=== PATIENT | male | born 1965 | race Caucasian/White ===

== ENCOUNTER 2016-11-30 13:02 | Emergency (ER) | payer BC ==
[2016-11-30] MEDS ORDERED: Sodium Chloride 0.9% 10 ML Syringe FLUSH PRN (13:22)
[2016-11-30] MEDS ORDERED: Morphine 2 MG/ML Syringe IVPUSH ONE (13:22)
[2016-11-30] MEDS ORDERED: Sodium Chloride 0.9% 1,000 ML IV ONE ×2 (13:22→15:19)
[2016-11-30] MEDS ORDERED: Ondansetron 4 MG Tab.DIS PO ONE (13:22)
[2016-11-30] MEDS ORDERED: Sodium Chloride 0.9% 2.5 ML Syringe FLUSH PRN (13:22)
--- NOTE | 2016-11-30 13:25 | EDM.PDOC ---
ED HPI GENERAL MEDICAL PROBLEM - General Chief Complaint: Gastrointestinal Problem Stated Complaint: VOMITING Time Seen by Provider: 11/30/16 13:07 - History of Present Illness INITIAL COMMENTS - FREE TEXT/NARRATIVE: HISTORY AND PHYSICAL: History of present illness: The patient is a 51-year-old male who presents with complaints of intractable vomiting that started at 6 AM this morning. According to the patient he ate [employer] last evening and after finishing it he immediately had one episode of vomiting but then went to sleep. He woke this morning with diffuse nausea and stomach cramping and had about 30 episodes of vomiting since that time and has pain in his abdomen and cramping since the vomiting. He has had one loose stool but feels like his abdomen is and is concerned he is going to have more diarrhea. He feels feverish but he does have a documented fever yesterday had a normal day with no systemic complaints of fever chills cough chest pain shortness of breath or abdominal issues. He has no history of food intolerance. He has not taken any [id number] medications for these symptoms. Patient states he has a history of diverticulitis but is only had one episode. Review of systems: As per history of present illness and below otherwise all systems reviewed and negative. Past medical history: As per history of present illness and as reviewed below otherwise noncontributory. Surgical history: As per history of present illness and as reviewed below otherwise noncontributory. Social history: No reported history of drug or alcohol abuse. Family history: As per history of present illness and as reviewed below otherwise noncontributory. Physical exam: Gen.: Well-developed well-nourished man who is somewhat anxious in the room but is able to be redirected. Vital signs of the note by me. HEENT: Atraumatic, normocephalic, , negative for conjunctival pallor or scleral icterus, mucous membranes tacky throat clear, neck supple, nontender, trachea midline. Lungs: Clear to auscultation, breath sounds equal bilaterally, chest nontender. Heart: S1S2, regular, negative for clicks, rubs, or JVD. Abdomen: Soft, nondistended bowel sounds are normoactive, the abdomen is scaphoid and not tympanitic, there is diffuse tenderness without localization no rebound or guarding. Negative for masses or hepatosplenomegaly. Pelvis: Stable nontender. Genitourinary: Deferred. Rectal: Deferred. Extremities: Atraumatic, negative for cords or calf pain. Neurovascular unremarkable. Neuro: Awake, alert, oriented. Cranial nerves II through XII unremarkable. Cerebellum unremarkable. Motor and sensory unremarkable throughout. Exam nonfocal. Diagnostics: CBC CMP amylase lipase UA abdominal x-rays Therapeutics: IV fluids Zofran and morphine Bentyl Patient states that he is feeling poorly again although is not actively vomiting but he still feels "sick". I will give him Reglan and Benadryl and continue with the IV fluids and reevaluate Patient continues to improve but is still somewhat restless and states that he still having some cramping but he has not had nausea or vomiting and he is currently starting to take some licks of a popsicle. I discussed with family and the patient all testing results and care plan for home that would include Zofran and Bentyl and I will also give a few Phenergan suppositories Zofran is not working. I stressed need for sips of fluids and small bites and reasons to return to the ED. Impression: Gastroenteritis/profound vomiting improving Definitive disposition and diagnosis as appropriate pending reevaluation and review of above. - Related Data Allergies Allergy/AdvReac Type Severity Reaction Status Date / Time No Known Allergies Allergy Verified 11/30/16 13:17 Home Meds: Home Meds . [No Known Home Meds] 11/30/16 [History] Past Medical History - Past Health History Medical/Surgical History: Denies Medical/Surgical History Social & Family History - Tobacco Use Smoking Status *Q: Current Every Day Smoker Years of Tobacco use: 20 Packs/Tins Daily: 0.4 - Caffeine Use Caffeine Use: Reports: None - Recreational Drug Use Recreational Drug Use: No ED ROS GENERAL - Review of Systems Review Of Systems: ROS reveals no pertinent complaints other than HPI. ED EXAM, GENERAL - Physical Exam Exam: See Below (See dictation) Course - Vital Signs Last Recorded V/S: Last Vital Signs Temp 36.9 C 11/30/16 13:14 Pulse 55 L 11/30/16 13:14 Resp 20 11/30/16 13:14 BP 165/92 H 11/30/16 13:14 Pulse Ox 100 11/30/16 13:14 - Orders/Labs/Meds Orders: Active Orders 24 hr Category Date Time Status UA W/MICROSCOPIC [URIN] Stat Lab 11/30/16 13:22 Uncollected Sodium Chloride 0.9% [Normal Saline] 1,000 ml Med 11/30/16 15:19 Active IV .Bolus Sodium Chloride 0.9% [Saline Flush] Med 11/30/16 13:22 Active 10 ml FLUSH ASDIRECTED PRN Sodium Chloride 0.9% [Saline Flush] Med 11/30/16 13:22 Active 2.5 ml FLUSH ASDIRECTED PRN Saline Lock Insert [OM.PC] Stat Oth 11/30/16 13:21 Ordered Medication Orders Sodium Chloride (Normal Saline) 1,000 mls @ 999 mls/hr IV .Bolus ONE Stop: 11/30/16 16:19 Last Admin: 11/30/16 14:57 Dose: 999 mls/hr Sodium Chloride (Saline Flush) 10 ml FLUSH ASDIRECTED PRN PRN Reason: Keep Vein Open Sodium Chloride (Saline Flush) 2.5 ml FLUSH ASDIRECTED PRN PRN Reason: Keep Vein Open Labs: Laboratory Tests 11/30/16 11/30/16 Range/Units 13:25 13:25 WBC 14.99 H (4.0-11.0) K/uL RBC 5.49 (4.50-5.90) M/uL Hgb 17.8 H (13.0-17.0) g/dL Hct 48.8 (38.0-50.0) % MCV 88.9 (80.0-98.0) fL MCH 32.4 H (27.0-32.0) pg MCHC 36.5 (31.0-37.0) g/dL RDW Std Deviation 41.2 (28.0-62.0) fl RDW Coeff of Clif 13 (11.0-15.0) % Plt Count 251 (150-400) K/uL MPV 10.00 (7.40-12.00) fL Neut % (Auto) 90.3 H (48.0-80.0) % Lymph % (Auto) 7.3 L (16.0-40.0) % [place] % (Auto) 2.3 (0.0-15.0) % Eos % (Auto) 0.0 (0.0-7.0) % Baso % (Auto) 0.1 (0.0-1.5) % Neut # (Auto) 13.5 H (1.4-5.7) K/uL Lymph # (Auto) 1.1 (0.6-2.4) K/uL [place] # (Auto) 0.3 (0.0-0.8) K/uL Eos # (Auto) 0.0 (0.0-0.7) K/uL Baso # (Auto) 0.0 (0.0-0.1) K/uL Nucleated RBC % 0.0 /100WBC Nucleated RBCs # 0 K/uL Sodium 142 (136-146) mmol/L Potassium 4.2 (3.5-5.1) mmol/L Chloride 108 (98-110) mmol/L Carbon Dioxide 21 (21-31) mmol/L BUN 14 (6.0-23.0) mg/dL Creatinine 1.1 (0.6-1.5) mg/dL Est Cr Clr Drug Dosing 93.41 mL/min Estimated GFR (MDRD) > 60.0 ml/min Glucose 151 H (60-110) mg/dL Calcium 10.2 (8.8-10.8) mg/dL Total Bilirubin 1.5 (0.1-1.5) mg/dL AST 19 (5-40) IU/L ALT 25 (8-54) IU/L Alkaline Phosphatase 101 (40-150) Total Protein 7.8 (6.0-8.0) g/dL Albumin 4.4 (3.5-5.0) g/dL Globulin 3.4 (2.0-3.5) g/dL Albumin/Globulin Ratio 1.3 (1.3-2.8) Amylase 71 (10-90) U/L Lipase 15 (7-80) U/L Meds: Medications Generic Name Dose Route Start Last Admin Trade Name Freq PRN Reason Stop Dose Admin Sodium Chloride 1,000 mls @ 999 mls/hr 11/30/16 15:19 11/30/16 14:57 Normal Saline IV 11/30/16 16:19 999 mls/hr .Bolus ONE Administration Sodium Chloride 10 ml 11/30/16 13:22 Saline Flush FLUSH ASDIRECTED PRN Keep Vein Open Sodium Chloride 2.5 ml 11/30/16 13:22 Saline Flush FLUSH ASDIRECTED PRN Keep Vein Open Discontinued Medications Generic Name Dose Route Start Last Admin Trade Name [place] PRN Reason Stop Dose Admin Diphenhydramine HCl 50 mg 11/30/16 14:27 11/30/16 14:53 Benadryl IVPUSH 11/30/16 14:28 50 mg ONETIME ONE Administration Sodium Chloride 1,000 mls @ 999 mls/hr 11/30/16 13:22 11/30/16 14:57 Normal Saline IV 11/30/16 14:22 999 mls/hr STAT ONE Administration Metoclopramide HCl 10 mg 11/30/16 14:27 11/30/16 14:52 Reglan IV 11/30/16 14:28 10 mg ONETIME ONE Administration Morphine Sulfate 4 mg 11/30/16 13:22 11/30/16 13:31 Morphine IVPUSH 11/30/16 13:23 4 mg ONETIME ONE Administration Ondansetron HCl 4 mg 11/30/16 13:22 11/30/16 13:34 Zofran Odt PO 11/30/16 13:23 4 mg ONETIME ONE Administration Departure - Departure Time of Disposition: 15:50 Disposition: Home, Self-Care 01 Condition: Fair Clinical Impression: Vomiting - Discharge Information Referrals: PCP,None [Primary Care Provider] - Forms: ED Department Discharge Additional Instructions: The following information is given to patients seen in the emergency department who are being discharged to home. This information is to outline your options for follow-up care. We provide all patients seen in our emergency department with a follow-up referral. The need for follow-up, as well as the timing and circumstances, are variable depending upon the specifics of your emergency department visit. If you don't have a primary care physician on staff, we will provide you with a referral. We always advise you to contact your personal physician following an emergency department visit to inform them of the circumstance of the visit and for follow-up with them and/or the need for any referrals to a consulting specialist. The emergency department will also refer you to a specialist when appropriate. This referral assures that you have the opportunity for followup care with a specialist. All of these measure are taken in an effort to provide you with optimal care, which includes your followup. Under all circumstances we always encourage you to contact your private physician who remains a resource for coordinating your care. When calling for followup care, please make the office aware that this follow-up is from your recent emergency room visit. If for any reason you are refused follow-up, please contact the [facility] emergency department at and ask to speak to the emergency department charge nurse. Primary care- Internal Medicine and Family [address] [address] Push sips of clear fluids as we discussed and bland bites for the next 24 hours. His medications as needed and prescribed. Expect to have some cramping vomiting and diarrhea for the next 24-36 hours return to ER as needed and as discussed. - My Orders Last 24 Hours: My Active Orders 11/30/16 13:21 Saline Lock Insert [OM.PC] Stat 11/30/16 13:22 UA W/MICROSCOPIC [URIN] Stat Sodium Chloride 0.9% [Saline Flush] 10 ml FLUSH ASDIRECTED PRN Sodium Chloride 0.9% [Saline Flush] 2.5 ml FLUSH ASDIRECTED PRN 11/30/16 15:19 Sodium Chloride 0.9% [Normal Saline] 1,000 ml IV .Bolus - Assessment/Plan Last 24 Hours: My Active Orders 11/30/16 13:21 Saline Lock Insert [OM.PC] Stat 11/30/16 13:22 UA W/MICROSCOPIC [URIN] Stat Sodium Chloride 0.9% [Saline Flush] 10 ml FLUSH ASDIRECTED PRN Sodium Chloride 0.9% [Saline Flush] 2.5 ml FLUSH ASDIRECTED PRN 11/30/16 15:19 Sodium Chloride 0.9% [Normal Saline] 1,000 ml IV .Bolus
[2016-11-30 13:57] LABS: CHLORIDE,CL 108 mmol/L (98-110); SODIUM,NA 142 mmol/L (136-146)
--- NOTE | 2016-11-30 14:14 | CR ---
EXAMINATION: Abdomen HISTORY: Pain COMPARISON: None TECHNIQUE: AP and upright views FINDINGS: There is a nonobstructive bowel gas pattern. No free air under the diaphragm. No abnormal c alcifications project over the kidneys. Visualized osseous structures appear unremarkable. IMPRESSION: Unremarkable abdominal films.
[2016-11-30] MEDS ORDERED: Metoclopramide 10 MG/2 ML SDV IV ONE (14:27)
[2016-11-30] MEDS ORDERED: diphenhydrAMINE 50 MG/ML SDV IVPUSH ONE (14:27)
[2016-11-30] MEDS ORDERED: Iopamidol 755 MG/ML 500 ML Multipack Bottle IVPUSH STA (16:26)
--- NOTE | 2016-11-30 16:56 | CT ---
CT of the abdomen and pelvis with contrast. HISTORY: Pain TECHNIQUE: Axial CT images were obtained of the abdomen and pelvis following administration of 100 mL of Isovue-370 in the right arm without complication. Coronal and sagittal reconstructions obtained. FINDINGS: There is a tiny 3 mm nodule within the subpleural right middle lobe. There is a tiny cyst within the left hepatic lobe. The spleen, adrenal glands, and pancreas appear no rmal. The gallbladder is normal. There is no bulky retroperitoneal lymphadenopathy or abdominal ascit es. The kidneys enhance and function symmetrically without evidence of obstructive uropathy. The large and small bowel are normal in caliber without evidence of obstruction. Appendix is normal. There are a few scattered diverticula noted. The urinary bladder is normal. The prostate is moderatel y prominent. No bulky pelvic lymphadenopathy or free pelvic fluid. There is a tiny fat-containing umb ilical hernia. No suspicious osseous abnormalities identified. There is an old healed pedicle fracture on the right at L4. 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 IMPRESSION: 1. No acute findings noted within the abdomen or pelvis.
[2016-11-30 17:24] VITALS: BP 139/74
== END 2016-11-30 17:19 | disposition home or self-care (01) ==
LOC: MW.ED 13:02
DX: K52.9 Noninfective gastroenteritis and colitis, unspecified (principal); F17.210 Nicotine dependence, cigarettes, uncomplicated
CPT/HCPCS: 36415; 74020; 74177; 80053; 82150; 83690; 85025; 96361; 96374; 96375; 99284; A9270; J1200; J2270; J2765; J7040; Q9967; 99283

== ENCOUNTER 2019-01-12 09:19 | Observation (INO) | payer BC, OTHER ==
[2019-01-12] MEDS ORDERED: Sodium Chloride 0.9% 2.5 ML Syringe FLUSH PRN (09:42)
[2019-01-12] MEDS ORDERED: Sodium Chloride 0.9% 1,000 ML IV ONE ×3 (09:42→13:35)
[2019-01-12] MEDS ORDERED: Sodium Chloride 0.9% 10 ML Syringe FLUSH PRN (09:42)
--- NOTE | 2019-01-12 09:45 | EDM.PDOC ---
ED HPI GENERAL MEDICAL PROBLEM - General Chief Complaint: General Stated Complaint: FLU SYMPTOMS Time Seen by Provider: 01/12/19 09:42 Source of Information: Reports: Patient History Limitations: Reports: No Limitations - History of Present Illness INITIAL COMMENTS - FREE TEXT/NARRATIVE: HISTORY AND PHYSICAL: History of present illness: Patient is a 53-year-old male presents to the ED with complaint of flu-like symptoms. He states for the past 5 days he has had vomiting, abdominal cramping , and cough. He states he has a history of diverticulitis and is having some left lower abdominal pain. He states he's had chills and subjective fevers, denies chest pain, dysuria, back pain, diarrhea, blood stools. Denies significant past medical or surgical history. He states his daughter recently was sick with diarrhea. Review of systems: As per history of present illness and below otherwise all systems reviewed and negative. Past medical history: As per history of present illness and as reviewed below otherwise noncontributory. Surgical history: As per history of present illness and as reviewed below otherwise noncontributory. Social history: No reported history of drug or alcohol abuse. Family history: As per history of present illness and as reviewed below otherwise noncontributory. Physical exam: General: Patient sitting comfortably in no acute distress and nontoxic appearing HEENT: Atraumatic, normocephalic, pupils reactive, negative for conjunctival pallor or scleral icterus, mucous membranes dry, throat clear, neck supple, nontender, trachea midline. No meningeal signs. Lungs: Clear to auscultation, breath sounds equal bilaterally, chest nontender. Heart: S1S2, regular, negative for clicks, rubs, or overt murmur. Abdomen: Soft, nondistended, nontender. Negative for masses or hepatosplenomegaly. Negative for costovertebral tenderness. No rigidity, rebound , guarding. Pelvis: Stable nontender. Genitourinary: Deferred. Rectal: Deferred. Extremities: Atraumatic, negative for cords or calf pain. Neurovascular unremarkable. Neuro: Awake, alert, oriented. Cranial nerves II through XII unremarkable. Cerebellum unremarkable. Motor and sensory unremarkable throughout. Exam nonfocal. Notes: Diagnostics: CBC, CMP, UA, CXR, CT abdomen/pelvis, lactate, blood culture x 2 Therapeutics: 2L NS IV 4mg Zofran IV Prescriptions: Impression: Vomiting, dehydration, diverticulitis Plan: Discussed with Dr. Ibarra, patient will be admitted to observation/telemetry for dehydration and diverticulitis. Definitive disposition and diagnosis as appropriate pending reevaluation and review of above. - Related Data Allergies Allergy/AdvReac Type Severity Reaction Status Date / Time No Known Allergies Allergy Verified 01/12/19 09:43 Home Meds: Home Meds . [No Known Home Meds] 11/30/16 [History] Past Medical History - Past Health History Medical/Surgical History: Denies Medical/Surgical History Social & Family History - Caffeine Use Caffeine Use: Reports: None ED ROS GENERAL - Review of Systems Review Of Systems: Comprehensive ROS is negative, except as noted in HPI. ED EXAM, GENERAL - Physical Exam Exam: See Below (see dictation) Course - Vital Signs Last Recorded V/S: Last Vital Signs Temp 96.5 F 01/12/19 09:34 Pulse 114 H 01/12/19 09:34 Resp 18 01/12/19 09:34 BP 135/93 H 01/12/19 09:34 Pulse Ox 98 01/12/19 09:34 - Orders/Labs/Meds Orders: Active Orders 24 hr Category Date Time Status CULTURE BLOOD [BC] Stat Lab 01/12/19 12:10 Ordered CULTURE BLOOD [BC] Stat Lab 01/12/19 12:10 Ordered LACTATE WITH REFLEX [BG] Stat Lab 01/12/19 12:10 Ordered UA RFX JUSTICE AND CULT IF INDIC [URIN] Stat Lab 01/12/19 11:21 Ordered Piperacillin/Tazobactam [Piperacil-Tazobact] 3.375 gm Med 01/12/19 12:17 Ordered Sodium Chloride 0.9% [Normal Saline] 50 ml IV ONETIME Sodium Chloride 0.9% [Normal Saline] 1,000 ml Med 01/12/19 11:46 Active IV STAT Sodium Chloride 0.9% [Saline Flush] Med 01/12/19 09:42 Active 10 ml FLUSH ASDIRECTED PRN Sodium Chloride 0.9% [Saline Flush] Med 01/12/19 09:42 Active 2.5 ml FLUSH ASDIRECTED PRN Blood Culture x2 Reflex Set [OM.PC] Stat Oth 01/12/19 12:10 Ordered Saline Lock Insert [OM.PC] Stat Oth 01/12/19 09:42 Ordered Medication Orders Sodium Chloride (Normal Saline) 1,000 mls @ 999 mls/hr IV STAT ONE Stop: 01/12/19 12:46 Last Admin: 01/12/19 11:50 Dose: 999 mls/hr Sodium Chloride (Saline Flush) 10 ml FLUSH ASDIRECTED PRN PRN Reason: Keep Vein Open Last Admin: 01/12/19 10:08 Dose: 10 ml Sodium Chloride (Saline Flush) 2.5 ml FLUSH ASDIRECTED PRN PRN Reason: Keep Vein Open Last Admin: 01/12/19 10:08 Dose: 2.5 ml Labs: Laboratory Tests 01/12/19 01/12/19 Range/Units 10:10 10:10 WBC 12.29 H (4.0-11.0) K/uL RBC 5.93 H (4.50-5.90) M/uL Hgb 17.5 H (13.0-17.0) g/dL Hct 51.8 H (38.0-50.0) % MCV 87.4 (80.0-98.0) fL MCH 29.5 (27.0-32.0) pg MCHC 33.8 (31.0-37.0) g/dL RDW Std Deviation 41.4 (28.0-62.0) fl RDW Coeff of Clif 13 (11.0-15.0) % Plt Count 270 (150-400) K/uL MPV 10.30 (7.40-12.00) fL Neut % (Auto) 64.8 (48.0-80.0) % Lymph % (Auto) 23.5 (16.0-40.0) % [place] % (Auto) 11.5 (0.0-15.0) % Eos % (Auto) 0.1 (0.0-7.0) % Baso % (Auto) 0.1 (0.0-1.5) % Neut # (Auto) 8.0 H (1.4-5.7) K/uL Lymph # (Auto) 2.9 H (0.6-2.4) K/uL [place] # (Auto) 1.4 H (0.0-0.8) K/uL Eos # (Auto) 0.0 (0.0-0.7) K/uL Baso # (Auto) 0.0 (0.0-0.1) K/uL Nucleated RBC % 0.0 /100WBC Nucleated RBCs # 0 K/uL Sodium 130 L (136-148) mmol/L Potassium 3.8 (3.5-5.1) mmol/L Chloride 90 L (98-107) mmol/L Carbon Dioxide 23.4 (21.0-32.0) mmol/L BUN 67 H (7.0-18.0) mg/dL Creatinine 2.3 H (0.8-1.3) mg/dL Est Cr Clr Drug Dosing 43.68 mL/min Estimated GFR (MDRD) 30.0 ml/min Glucose 156 H (74-106) mg/dL Calcium 9.7 (8.5-10.1) mg/dL Total Bilirubin 4.2 H (0.2-1.0) mg/dL AST 58 H (15-37) IU/L ALT 50 (14-63) IU/L Alkaline Phosphatase 100 (46-116) U/L Total Protein 9.4 H (6.4-8.2) g/dL Albumin 4.8 (3.4-5.0) g/dL Globulin 4.6 H (2.6-4.0) g/dL Albumin/Globulin Ratio 1.0 (0.9-1.6) Meds: Medications Generic Name Dose Route Start Last Admin Trade Name Freq PRN Reason Stop Dose Admin Sodium Chloride 1,000 mls @ 999 mls/hr 01/12/19 11:46 01/12/19 11:50 Normal Saline IV 01/12/19 12:46 999 mls/hr STAT ONE Administration Sodium Chloride 10 ml 01/12/19 09:42 01/12/19 10:08 Saline Flush FLUSH 10 ml ASDIRECTED PRN Administration Keep Vein Open Sodium Chloride 2.5 ml 01/12/19 09:42 01/12/19 10:08 Saline Flush FLUSH 2.5 ml ASDIRECTED PRN Administration Keep Vein Open Discontinued Medications Generic Name Dose Route Start Last Admin Trade Name Freq PRN Reason Stop Dose Admin Sodium Chloride 1,000 mls @ 999 mls/hr 01/12/19 09:42 01/12/19 10:07 Normal Saline IV 01/12/19 10:42 999 mls/hr STAT ONE Administration Ondansetron HCl 4 mg 01/12/19 10:47 01/12/19 10:51 Zofran IVPUSH 01/12/19 10:48 4 mg ONETIME ONE Administration Departure - Departure Time of Disposition: 12:20 Disposition: Refer to Observation Condition: Good Clinical Impression: Dehydration, Diverticula of colon - Discharge Information Forms: ED Department Discharge - My Orders Last 24 Hours: My Active Orders 01/12/19 09:42 Sodium Chloride 0.9% [Saline Flush] 10 ml FLUSH ASDIRECTED PRN Sodium Chloride 0.9% [Saline Flush] 2.5 ml FLUSH ASDIRECTED PRN Saline Lock Insert [OM.PC] Stat 01/12/19 11:21 UA RFX JUSTICE AND CULT IF INDIC [URIN] Stat 01/12/19 11:46 Sodium Chloride 0.9% [Normal Saline] 1,000 ml IV STAT 01/12/19 12:10 CULTURE BLOOD [BC] Stat CULTURE BLOOD [BC] Stat LACTATE WITH REFLEX [BG] Stat Blood Culture x2 Reflex Set [OM.PC] Stat 01/12/19 12:17 Piperacillin/Tazobactam [Piperacil-Tazobact] 3.375 gm Sodium Chloride 0.9% [ Normal Saline] 50 ml IV ONETIME - Assessment/Plan Last 24 Hours: My Active Orders 01/12/19 09:42 Sodium Chloride 0.9% [Saline Flush] 10 ml FLUSH ASDIRECTED PRN Sodium Chloride 0.9% [Saline Flush] 2.5 ml FLUSH ASDIRECTED PRN Saline Lock Insert [OM.PC] Stat 01/12/19 11:21 UA RFX JUSTICE AND CULT IF INDIC [URIN] Stat 01/12/19 11:46 Sodium Chloride 0.9% [Normal Saline] 1,000 ml IV STAT 01/12/19 12:10 CULTURE BLOOD [BC] Stat CULTURE BLOOD [BC] Stat LACTATE WITH REFLEX [BG] Stat Blood Culture x2 Reflex Set [OM.PC] Stat 01/12/19 12:17 Piperacillin/Tazobactam [Piperacil-Tazobact] 3.375 gm Sodium Chloride 0.9% [ Normal Saline] 50 ml IV ONETIME
[2019-01-12] MEDS ORDERED: Ondansetron 4 MG/2 ML SDV IVPUSH ONE (10:47)
[2019-01-12 10:55] LABS: CARBON DIOXIDE,CO2 23.4 mmol/L (21.0-32.0); POTASSIUM,K 3.8 mmol/L (3.5-5.1)
--- NOTE | 2019-01-12 11:46 | CR ---
Chest: Two views of the chest were obtained. Comparison: Prior chest x-ray of 08/30/12. Heart size and mediastinum are normal. Lungs are clear. Lungs are hyperinflated. Bony structures are within normal limits. Impression: 1. Emphysematous change. 2. Nothing acute is otherwise seen. Diagnostic code #2 MTDD
--- NOTE | 2019-01-12 12:02 | CT ---
CT abdomen and pelvis Technique: Multiple axial sections were obtained from above the dome of the diaphragm inferiorly through the pubic symphysis. Intravenous and oral contrast not utilized. Comparison: Prior CT abdomen and pelvis exam of 11/30/16. Findings: Very slight inflammatory change is noted near the junction of the descending and sigmoid regions. Minimal diverticulitis is a possibility. No other inflammatory change is seen. Visualized lung bases show nothing acute. Liver shows no focal parenchymal abnormality. Spleen appears within normal limits. Gallbladder contains no calcified gallstones. Adrenal glands show no nodule. Kidneys show no abnormal calcifications or hydronephrosis. Pancreas shows no discrete abnormality. Aorta shows atherosclerotic calcification which continues into the iliac vessels with no aneurysm. No retroperitoneal adenopathy or mesenteric abnormalities are seen. No pelvic mass or adenopathy is seen. Appendix is seen and is normal in size. Bone window settings were reviewed which shows spondylolisthesis and severe disc space narrowing at L5-S1 which is due to spondylolytic defect on the left side and old pedicle fracture on the right side. These findings are stable from previous exam. Other less prominent degenerative change is scattered within the spine. Impression: 1. Possible minimal diverticulitis at the junction of descending and sigmoid colon. 2. Other findings as noted above which are stable and nonacute. Diagnostic code #3 MTDD
[2019-01-12] MEDS ORDERED: Piperacillin/Tazobactam 3.375 GM in Sodium Chloride 0.9% 50 ML IV ONE (12:17)
[2019-01-12] MEDS ORDERED: Sodium Chloride 0.9% 50 ML ONE (13:05)
[2019-01-12] MEDS ORDERED: Sodium Chloride 0.9% 1,000 ML IV SCH (13:45)
[2019-01-12] MEDS ORDERED: Morphine 2 MG/ML Syringe IVPUSH PRN (14:21)
[2019-01-12] MEDS ORDERED: Ondansetron 4 MG/2 ML SDV IVPUSH PRN (14:22)
--- NOTE | 2019-01-12 14:26 | PCM.HP.2 ---
H&P History of Present Illness - General Date of Service: 01/12/19 Admit Problem/Dx: Admission Diagnosis/Problem Admission Diagnosis/Problem Dehydration Source of Information: Patient History Limitations: Reports: No Limitations - History of Present Illness Initial Comments - Free Text/Narative: This 53 year old male with pmh of diverticulitis presented to the ED with complaints of nausea, vomiting, abdominal pain and subjective fevers at home since . He reports he has been unable to keep fluids down since , he kept a small amount of applesauce down but that is it. He denies diarrhea, actually has not had a stool for 3 days, and prior to that no black or bloody BMs. He reports he was on antibiotics 2-3 months ago for sinus infection, Augmentin. His daughter was sick with diarrhea x 1 day, , but that is it no other symptoms. He reports his last colonoscopy was 3-4 years ago. He denies chest pain or SOB. reports mild cough, but no sputum production. No palpitations. Reports limited urine output in the last couple days. He reports the abdominal pain is in his LLQ no other place. Denies gallbladder issues. In the ED leukocytosis noted at 12,290, hgb 17.5, hct 51.8, Na 130, Cl 90, BUN 67, Cr 2.3. Bilirubin 4.2 AST 58 CXR negative, showed emphysematous changes. Abdominal CT showed slight inflammatory changes near the junction of the descending and sigmoid regions, minimal diverticulitis is possibility. No gallbladder stones. He was treated with 2 L NS bolus in the ED, also given Zosyn. He will be admitted for diverticulitis, FREDRICK, dehydration and N/V. - Related Data Allergies/Adverse Reactions: Allergies Allergy/AdvReac Type Severity Reaction Status Date / Time No Known Allergies Allergy Verified 01/12/19 09:43 Home Medications: Home Meds . [No Known Home Meds] 11/30/16 [History] Past Medical History - Past Health History Medical/Surgical History: Denies Medical/Surgical History Cardiovascular History: Reports: None. Denies: CAD, Hypertension, [place] Respiratory History: Reports: None. Denies: COPD, SOB Gastrointestinal History: Reports: None. Denies: GERD Musculoskeletal History: Reports: None Endocrine/Metabolic History: Denies: Diabetes, Type II Dermatologic History: Reports: Psoriasis - Infectious Disease History Infectious Disease History: Reports: Chicken Pox Social & Family History - Family History Family Medical History: Noncontributory - Tobacco Use Smoking Status *Q: Current Every Day Smoker Years of Tobacco use: 20 Packs/Tins Daily: 0.5 - Caffeine Use Caffeine Use: Reports: None - Alcohol Use Alcohol Use History: No - Recreational Drug Use Recreational Drug Use: Yes Drug Use in Last 12 Months: Yes Recreational Drug Type: Reports: Marijuana/Hashish Recreational Drug Use Frequency: Rarely - Living Situation & Occupation Occupation: Employed H&P Review of Systems - Review of Systems: Review Of Systems: See Below General: Reports: Fever, Chills, Malaise, Decreased Appetite HEENT: Reports: No Symptoms. Denies: Headaches, Sinus Congestion, Sore Throat Pulmonary: Reports: No Symptoms. Denies: Shortness of Breath Cardiovascular: Reports: No Symptoms. Denies: Chest Pain, Palpitations, Edema Gastrointestinal: Reports: Abdominal Pain, Constipation, Decreased Appetite, Nausea, Vomiting. Denies: Black Stool, Bloody Stool, Diarrhea Genitourinary: Reports: No Symptoms. Denies: Dysuria, Frequency, Burning, Flank Pain Musculoskeletal: Reports: No Symptoms Skin: Reports: No Symptoms Psychiatric: Reports: No Symptoms Neurological: Reports: No Symptoms Hematologic/Lymphatic: Reports: No Symptoms Immunologic: Reports: No Symptoms Exam - Exam Exam: See Below - Vital Signs Vital Signs: Last Vital Signs Temp 96.5 F 01/12/19 09:34 Pulse 79 01/12/19 13:50 Resp 16 01/12/19 13:50 BP 135/93 H 01/12/19 09:34 Pulse Ox 99 01/12/19 13:50 Weight: 84.822 kg - Exam General: Alert, Oriented, Cooperative HEENT: Scleral Icterus. No: Mucosa Moist & [place] (dry) Lungs: Clear to Auscultation, Normal Respiratory Effort, Other (congested non productive cough) Cardiovascular: Regular Rate, Regular Rhythm GI/Abdominal Exam: Soft, Tender (LLQ). No: Normal Bowel Sounds Extremities: Normal Inspection, Normal Range of Motion, Non-Tender, No Pedal Edema Skin: Warm, Dry, Intact Neuro Extensive - Mental Status: Alert, Oriented x3 Neuro Extensive - Motor, Sensory, Reflexes: CN II-XII Intact Psychiatric: Alert, Normal Affect, Normal Mood - Patient Data Lab Results Last 24 hrs: Laboratory Results - last 24 hr 01/12/19 01/12/19 01/12/19 Range/Units 10:10 10:10 12:31 WBC 12.29 H (4.0-11.0) K/uL RBC 5.93 H (4.50-5.90) M/uL Hgb 17.5 H (13.0-17.0) g/dL Hct 51.8 H (38.0-50.0) % MCV 87.4 (80.0-98.0) fL MCH 29.5 (27.0-32.0) pg MCHC 33.8 (31.0-37.0) g/dL RDW Std Deviation 41.4 (28.0-62.0) fl RDW Coeff of Clif 13 (11.0-15.0) % Plt Count 270 (150-400) K/uL MPV 10.30 (7.40-12.00) fL Neut % (Auto) 64.8 (48.0-80.0) % Lymph % (Auto) 23.5 (16.0-40.0) % [place] % (Auto) 11.5 (0.0-15.0) % Eos % (Auto) 0.1 (0.0-7.0) % Baso % (Auto) 0.1 (0.0-1.5) % Neut # (Auto) 8.0 H (1.4-5.7) K/uL Lymph # (Auto) 2.9 H (0.6-2.4) K/uL [place] # (Auto) 1.4 H (0.0-0.8) K/uL Eos # (Auto) 0.0 (0.0-0.7) K/uL Baso # (Auto) 0.0 (0.0-0.1) K/uL Nucleated RBC % 0.0 /100WBC Nucleated RBCs # 0 K/uL Lactate 1.7 (0.20-2.00) mmol/L Sodium 130 L (136-148) mmol/L Potassium 3.8 (3.5-5.1) mmol/L Chloride 90 L (98-107) mmol/L Carbon Dioxide 23.4 (21.0-32.0) mmol/L BUN 67 H (7.0-18.0) mg/dL Creatinine 2.3 H (0.8-1.3) mg/dL Est Cr Clr Drug Dosing 43.68 mL/min Estimated GFR (MDRD) 30.0 ml/min Glucose 156 H (74-106) mg/dL Calcium 9.7 (8.5-10.1) mg/dL Total Bilirubin 4.2 H (0.2-1.0) mg/dL AST 58 H (15-37) IU/L ALT 50 (14-63) IU/L Alkaline Phosphatase 100 (46-116) U/L Total Protein 9.4 H (6.4-8.2) g/dL Albumin 4.8 (3.4-5.0) g/dL Globulin 4.6 H (2.6-4.0) g/dL Albumin/Globulin Ratio 1.0 (0.9-1.6) Urine Color Urine Appearance Urine pH (5.0-8.0) Ur Specific [place] (1.001-1.035) Urine Protein (NEGATIVE) mg/dL Urine Glucose (UA) (NEGATIVE) mg/dL Urine Ketones (NEGATIVE) mg/dL Urine Occult Blood (NEGATIVE) Urine Nitrite (NEGATIVE) Urine Bilirubin (NEGATIVE) Urine Urobilinogen (<2.0) EU/dL Ur Leukocyte Esterase (NEGATIVE) Urine RBC (0-2/HPF) Urine WBC (0-5/HPF) Ur Epithelial Cells (NONE-FEW) Urine Bacteria (NEGATIVE) Urine Mucus (NONE-MOD) 01/12/19 Range/Units 12:35 WBC (4.0-11.0) K/uL RBC (4.50-5.90) M/uL Hgb (13.0-17.0) g/dL Hct (38.0-50.0) % MCV (80.0-98.0) fL MCH (27.0-32.0) pg MCHC (31.0-37.0) g/dL RDW Std Deviation (28.0-62.0) fl RDW Coeff of Clif (11.0-15.0) % Plt Count (150-400) K/uL MPV (7.40-12.00) fL Neut % (Auto) (48.0-80.0) % Lymph % (Auto) (16.0-40.0) % [place] % (Auto) (0.0-15.0) % Eos % (Auto) (0.0-7.0) % Baso % (Auto) (0.0-1.5) % Neut # (Auto) (1.4-5.7) K/uL Lymph # (Auto) (0.6-2.4) K/uL [place] # (Auto) (0.0-0.8) K/uL Eos # (Auto) (0.0-0.7) K/uL Baso # (Auto) (0.0-0.1) K/uL Nucleated RBC % /100WBC Nucleated RBCs # K/uL Lactate (0.20-2.00) mmol/L Sodium (136-148) mmol/L Potassium (3.5-5.1) mmol/L Chloride (98-107) mmol/L Carbon Dioxide (21.0-32.0) mmol/L BUN (7.0-18.0) mg/dL Creatinine (0.8-1.3) mg/dL Est Cr Clr Drug Dosing mL/min Estimated GFR (MDRD) ml/min Glucose (74-106) mg/dL Calcium (8.5-10.1) mg/dL Total Bilirubin (0.2-1.0) mg/dL AST (15-37) IU/L ALT (14-63) IU/L Alkaline Phosphatase (46-116) U/L Total Protein (6.4-8.2) g/dL Albumin (3.4-5.0) g/dL Globulin (2.6-4.0) g/dL Albumin/Globulin Ratio (0.9-1.6) Urine Color YELLOW Urine Appearance HAZY Urine pH 6.0 (5.0-8.0) Ur Specific [place] 1.025 (1.001-1.035) Urine Protein NEGATIVE (NEGATIVE) mg/dL Urine Glucose (UA) NEGATIVE (NEGATIVE) mg/dL Urine Ketones 15 H (NEGATIVE) mg/dL Urine Occult Blood SMALL H (NEGATIVE) Urine Nitrite NEGATIVE (NEGATIVE) Urine Bilirubin SMALL H (NEGATIVE) Urine Urobilinogen 0.2 (<2.0) EU/dL Ur Leukocyte Esterase NEGATIVE (NEGATIVE) Urine RBC 0-3 (0-2/HPF) Urine WBC 0-2 (0-5/HPF) Ur Epithelial Cells OCCASIONAL (NONE-FEW) Urine Bacteria FEW (NEGATIVE) Urine Mucus LIGHT (NONE-MOD) Result Diagrams: 01/12/19 10:10 01/12/19 10:10 Jacob Results Last 24 hrs: Microbiology 01/12/19 10:12 Influenza Type A Antigen Screen - Final Nasopharyngeal Swab NEGATIVE INFLUENZA A VIRUS AG REFERENCE RANGE: NEGATIVE Influenza Type B Antigen Screen - Final NEGATIVE INFLUENZA B VIRUS AG REFERENCE RANGE: NEGATIVE - Problem List (1) Diverticulitis SNOMED Code(s): 991437063 ICD Code: K57.92 - DVTRCLI OF INTEST, PART UNSP, W/O PERF OR ABSCESS W/O BLEED Status: Acute Current Visit: Yes (2) FREDRICK (acute kidney injury) SNOMED Code(s): 60907477, 60334349 ICD Code: N17.9 - ACUTE KIDNEY FAILURE, UNSPECIFIED Status: Acute Current Visit: Yes (3) Hyperbilirubinemia SNOMED Code(s): 78974959 ICD Code: E80.6 - OTHER DISORDERS OF BILIRUBIN METABOLISM Status: Acute Current Visit: Yes (4) Dehydration SNOMED Code(s): 76903832 ICD Code: E86.0 - DEHYDRATION Status: Acute Current Visit: Yes Problem List Initiated/Reviewed/Updated: Yes Orders Last 24hrs: Active Orders 24 hr Category Date Time Status Admission Status [Patient Status] [ADT] Stat ADT 01/12/19 12:20 Active Oxygen Therapy [RC] PRN Care 01/12/19 14:21 Ordered Up to Chair [RC] ASDIRECTED Care 01/12/19 14:21 Ordered VTE/DVT Education [RC] PER UNIT ROUTINE Care 01/12/19 14:21 Ordered Vital Signs [RC] Q4H Care 01/12/19 14:21 Ordered Nothing Per Oral Diet [DIET] Diet 01/12/19 Dinner Ordered CBC WITH AUTO DIFF [HEME] AM Lab 01/13/19 05:11 Ordered CBC WITH AUTO DIFF [HEME] AM Lab 01/14/19 05:11 Ordered CBC WITH AUTO DIFF [HEME] AM Lab 01/15/19 05:11 Ordered COMPREHENSIVE METABOLIC PN,CMP [CHEM] AM Lab 01/13/19 05:11 Ordered COMPREHENSIVE METABOLIC PN,CMP [CHEM] AM Lab 01/14/19 05:11 Ordered COMPREHENSIVE METABOLIC PN,CMP [CHEM] AM Lab 01/15/19 05:11 Ordered CULTURE BLOOD [BC] Stat Lab 01/12/19 12:31 Received CULTURE BLOOD [BC] Stat Lab 01/12/19 12:51 Received Morphine Med 01/12/19 14:21 Ordered 2 mg IVPUSH Q2H PRN Ondansetron [Zofran] Med 01/12/19 14:22 Ordered 4 mg IVPUSH Q4H PRN Piperacillin/Tazobactam [Piperacil-Tazobact] 3.375 gm Med 01/12/19 18:00 Ordered Sodium Chloride 0.9% [Normal Saline] 50 ml IV Q6H Sodium Chloride 0.9% [Normal Saline] 1,000 ml Med 01/12/19 13:35 Active IV .Bolus Sodium Chloride 0.9% [Normal Saline] 1,000 ml Med 01/12/19 14:30 Ordered IV Q6H Sodium Chloride 0.9% [Saline Flush] Med 01/12/19 09:42 Active 10 ml FLUSH ASDIRECTED PRN Sodium Chloride 0.9% [Saline Flush] Med 01/12/19 09:42 Active 2.5 ml FLUSH ASDIRECTED PRN Blood Culture x2 Reflex Set [OM.PC] Stat Oth 01/12/19 12:10 Ordered Saline Lock Insert [OM.PC] Stat Oth 01/12/19 09:42 Ordered Resuscitation Status Routine Resus Stat 01/12/19 14:21 Ordered Medication Orders Sodium Chloride (Normal Saline) 1,000 mls @ 999 mls/hr IV .Bolus ONE Stop: 01/12/19 14:35 Last Admin: 01/12/19 13:49 Dose: 999 mls/hr Sodium Chloride (Normal Saline) 1,000 mls @ 150 mls/hr IV Q6H NIKKIE Piperacillin Sod/Tazobactam (Sod 3.375 gm/ Sodium Chloride) 50 mls @ 100 mls/ hr IV Q6H NIKKIE Morphine Sulfate (Morphine) 2 mg IVPUSH Q2H PRN PRN Reason: Pain (severe 7-10) Ondansetron HCl (Zofran) 4 mg IVPUSH Q4H PRN PRN Reason: Nausea Sodium Chloride (Saline Flush) 10 ml FLUSH ASDIRECTED PRN PRN Reason: Keep Vein Open Last Admin: 01/12/19 10:08 Dose: 10 ml Sodium Chloride (Saline Flush) 2.5 ml FLUSH ASDIRECTED PRN PRN Reason: Keep Vein Open Last Admin: 01/12/19 10:08 Dose: 2.5 ml Assessment/Plan Comment:: This 53 year old male admitted for acute sigmoid diverticulitis, dehydration, FREDRICK and N/V 1. Sigmoid diverticulitis: Bowel rest, continue Zosyn. Pain medication PRN , Zofran PRN as well. Obtain stool studies. Will need outpatient colonoscopy. BC pending. UA negative. 2. FREDRICK: Secondary to dehydration. Given 2 L NS bolus in ED, given 3rd due to degree of dehydration. Initially tachycardia, but improved with hydration. Will continue NS 150 for now. repeat labwork in Am. 3. Hyperbilirubinemia: Obtain RUQ US to rule out stones. no recent Tylenol use. VTE prophylaxis: SCDs, ambulation Dispo: 2 days. - Mortality Measure Prognosis:: Good
[2019-01-12] MEDS: Sodium Chloride 0.9% 1,000 ML IV SCH ×2 (14:57→19:45)
[2019-01-12] MEDS: Pantoprazole 40 MG in Sodium Chloride 0.9% 10 ML IV SCH (15:33)
--- NOTE | 2019-01-12 16:32 | US ---
Limited abdominal ultrasound: Multiple real-time images of the upper right abdomen were obtained. Comparison: Previous abdominal and pelvic CT exam performed earlier on the same day. Findings: Gallbladder shows evidence of sludge. No shadowing gallstones are seen. No gallbladder wall thickening or biliary duct dilatation is seen. Liver shows no focal abnormality. Right kidney shows no hydronephrosis or mass. Pancreas appears within normal limits. Impression: 1. Sludge within the gallbladder. No shadowing gallstones. No biliary duct dilatation or gallbladder wall thickening is seen. 2. No additional abnormality is identified on right upper quadrant abdominal ultrasound. Diagnostic code #2 MTDD
[2019-01-12] MEDS ORDERED: FLU Vacc QS2019-20(6MOS+)/PF 60 MCG/0.5 ML SYRINGE IM ONE (17:15)
[2019-01-12] MEDS: Piperacillin/Tazobactam 3.375 GM in Sodium Chloride 0.9% 50 ML IV SCH (19:10)
[2019-01-13] MEDS: Sodium Chloride 0.9% 1,000 ML IV SCH ×2 (02:00→10:33)
[2019-01-13] MEDS: Piperacillin/Tazobactam 3.375 GM in Sodium Chloride 0.9% 50 ML IV SCH ×4 (06:15→12:40)
[2019-01-13] MEDS ORDERED: Potassium Chloride 20 MEQ Tab.ER PO ONE (10:09)
[2019-01-13] MEDS ORDERED: FLU Vacc QS2019-20(6MOS+)/PF 60 MCG/0.5 ML SYRINGE IM ONE (11:30)
--- NOTE | 2019-01-13 13:30 | PCM.DCSUM1 ---
Discharge Summary - Hospital Course Brief History: This 53 year old male with pmh of diverticulitis presented to the ED with complaints of nausea, vomiting, abdominal pain and subjective fevers at home since . He reports he has been unable to keep fluids down since , he kept a small amount of applesauce down but that is it. He denies diarrhea, actually has not had a stool for 3 days, and prior to that no black or bloody BMs. He reports he was on antibiotics 2-3 months ago for sinus infection, Augmentin. His daughter was sick with diarrhea x 1 day, , but that is it no other symptoms. He reports his last colonoscopy was 3-4 years ago. He denies chest pain or SOB. reports mild cough, but no sputum production. No palpitations. Reports limited urine output in the last couple days. He reports the abdominal pain is in his LLQ no other place. Denies gallbladder issues. In the ED leukocytosis noted at 12,290, hgb 17.5, hct 51.8 , Na 130, Cl 90, BUN 67, Cr 2.3. Bilirubin 4.2 AST 58 CXR negative, showed emphysematous changes. Abdominal CT showed slight inflammatory changes near the junction of the descending and sigmoid regions, minimal diverticulitis is possibility. No gallbladder stones. He was treated with 2 L NS bolus in the ED, also given Zosyn. He will be admitted for diverticulitis, FREDRICK, dehydration and N /V. Diagnosis: Stroke: No - Discharge Data Discharge Date: 01/13/19 Discharge Disposition: Home, Self-Care 01 Condition: Stable - Referral to Home Health Primary Care Physician: PCP None - Discharge Diagnosis/Problem(s) (1) Diverticulitis SNOMED Code(s): 867814041 ICD Code: K57.92 - DVTRCLI OF INTEST, PART UNSP, W/O PERF OR ABSCESS W/O BLEED Status: Acute Current Visit: Yes (2) FREDRICK (acute kidney injury) SNOMED Code(s): 79413371, 21573237 ICD Code: N17.9 - ACUTE KIDNEY FAILURE, UNSPECIFIED Status: Acute Current Visit: Yes (3) Hyperbilirubinemia SNOMED Code(s): 62948438 ICD Code: E80.6 - OTHER DISORDERS OF BILIRUBIN METABOLISM Status: Acute Current Visit: Yes (4) Dehydration SNOMED Code(s): 76040864 ICD Code: E86.0 - DEHYDRATION Status: Acute Current Visit: Yes - Patient Instructions Diet: GI Soft/Low Residue/Low Fiber Activity: As Tolerated Showering/Bathing: May Shower Notify Provider of: Fever, Increased Pain, Swelling and Redness, Drainage, Nausea and/or Vomiting - Discharge Plan *PRESCRIPTION DRUG MONITORING PROGRAM REVIEWED*: Not Applicable *COPY OF PRESCRIPTION DRUG MONITORING REPORT IN PATIENT JESSICA: Not Applicable Prescriptions/Med Rec: Levofloxacin [Levaquin] 500 mg PO DAILY #13 tablet metroNIDAZOLE [Flagyl] 500 mg PO Q8H #39 tab Home Medications: Home Meds Levofloxacin [Levaquin] 500 mg PO DAILY #13 tablet 01/13/19 [Rx] metroNIDAZOLE [Flagyl] 500 mg PO Q8H #39 tab 01/13/19 [Rx] Oxygen Therapy Mode: Room Air Patient Handouts: Diverticulitis, [id number], Metronidazole extended-release tablets, Dehydration, Adult, [id number], Levofloxacin tablets Referrals: Angel Brooke MD [Physician] - 01/21/19 3:00 pm Hiren Soares MD [Physician] - 01/27/19 9:30 am (You will need to arrive twenty minutes early for check-in. Bring photo ID and insurance cards.) - Discharge Summary/Plan Comment DC Time >30 min.: No Discharge Summary/Plan Comment: Admission Diagnoses: Diverticulitis Dehydration FREDRICK Hyperbilirubinemia Discharge Diagnoses Diverticulitis Dehydration-resolved FREDRICK-resolved Hyperbilirubinemia Bentley was admitted due to acute sigmoid diverticulitis and treated with IV Zosyn and IVFs for dehydration. He was noted to have FREDRICK from significant dehydration related to N/V. CT revealed slight inflammatory changes near the junction of the descending and sigmoid regions, minimal diverticulitis is possibility. Abdominal US obtained due to elevated bilirubin, 4.2. No stones noted. Bilirubin improved today to 3.9. Leukocytosis improved today as well as FREDRICK. He has no further pain and is asking for discharge home. He tolerated soft diet with no nausea or vomiting and is tolerating water intake well. He will be discharged home today on Levaquin 500 daily for 14 days and Flagyl 500 TID for 14 days as well. he is to follow up with PCP in 1 week and general surgeon for colonoscopy in 2-3 weeks. He is to return to ED or clinic if concerns such as fevers, chills, diarrhea or pain start. CMP to be drawn prior to appointment with Dr Soares next week to evaluate bilirubin. - Patient Data Vitals - Most Recent: Last Vital Signs Temp 98.7 F 01/13/19 04:00 Pulse 75 01/13/19 08:00 Resp 17 01/13/19 08:00 BP 112/67 01/13/19 08:00 Pulse Ox 95 01/13/19 08:00 Weight - Most Recent: 84.822 kg I&O - Last 24 hours: Intake & Output 01/12/19 01/13/19 01/13/19 22:59 06:59 14:59 Intake Total 1555 3072 Output Total 300 925 Balance 1255 4247 Lab Results - Last 24 hrs: Laboratory Results - last 24 hr 01/13/19 01/13/19 01/13/19 Range/Units 05:07 05:07 05:07 WBC 7.46 (4.0-11.0) K/uL RBC 4.25 L (4.50-5.90) M/uL Hgb 13.6 (13.0-17.0) g/dL Hct 38.0 (38.0-50.0) % MCV 89.4 (80.0-98.0) fL MCH 32.0 (27.0-32.0) pg MCHC 35.8 (31.0-37.0) g/dL RDW Std Deviation 42.4 (28.0-62.0) fl RDW Coeff of Clif 13 (11.0-15.0) % Plt Count 168 (150-400) K/uL MPV 10.20 (7.40-12.00) fL Neut % (Auto) 51.3 (48.0-80.0) % Lymph % (Auto) 35.1 (16.0-40.0) % [place] % (Auto) 13.0 (0.0-15.0) % Eos % (Auto) 0.5 (0.0-7.0) % Baso % (Auto) 0.1 (0.0-1.5) % Neut # (Auto) 3.8 (1.4-5.7) K/uL Lymph # (Auto) 2.6 H (0.6-2.4) K/uL [place] # (Auto) 1.0 H (0.0-0.8) K/uL Eos # (Auto) 0.0 (0.0-0.7) K/uL Baso # (Auto) 0.0 (0.0-0.1) K/uL Nucleated RBC % 0.0 /100WBC Nucleated RBCs # 0 K/uL Sodium 136 (136-148) mmol/L Potassium 3.0 L (3.5-5.1) mmol/L Chloride 103 (98-107) mmol/L Carbon Dioxide 25.0 (21.0-32.0) mmol/L BUN 29 H (7.0-18.0) mg/dL Creatinine 1.3 (0.8-1.3) mg/dL Est Cr Clr Drug Dosing 77.28 mL/min Estimated GFR (MDRD) 58.0 ml/min Glucose 97 (74-106) mg/dL Calcium 7.4 L (8.5-10.1) mg/dL Magnesium 2.3 (1.8-2.4) mg/dL Total Bilirubin 3.9 H (0.2-1.0) mg/dL AST 41 H (15-37) IU/L ALT 36 (14-63) IU/L Alkaline Phosphatase 57 (46-116) U/L Total Protein 5.8 L (6.4-8.2) g/dL Albumin 3.0 L (3.4-5.0) g/dL Globulin 2.8 (2.6-4.0) g/dL Albumin/Globulin Ratio 1.1 (0.9-1.6) JUSTICE Results - Last 24 hrs: Microbiology 01/12/19 12:51 Aerobic Blood Culture - Preliminary Blood - Venous - Lab Draw NO GROWTH AFTER 1 DAY Anaerobic Blood Culture - Preliminary NO GROWTH AFTER 1 DAY 01/12/19 12:31 Aerobic Blood Culture - Preliminary Blood - Venous NO GROWTH AFTER 1 DAY Anaerobic Blood Culture - Preliminary NO GROWTH AFTER 1 DAY 01/12/19 10:12 Influenza Type A Antigen Screen - Final Nasopharyngeal Swab NEGATIVE INFLUENZA A VIRUS AG REFERENCE RANGE: NEGATIVE Influenza Type B Antigen Screen - Final NEGATIVE INFLUENZA B VIRUS AG REFERENCE RANGE: NEGATIVE Med Orders - Current: Current Medications Piperacillin Sod/Tazobactam (Sod 3.375 gm/ Sodium Chloride) 50 mls @ 100 mls/ hr IV Q6H NIKKIE Last Admin: 01/13/19 12:40 Dose: 100 mls/hr Pantoprazole Sodium 40 mg/ (Sodium Chloride) 10 mls @ 300 mls/hr IV Q24H NIKKIE Last Admin: 01/12/19 15:33 Dose: 300 mls/hr Morphine Sulfate (Morphine) 2 mg IVPUSH Q2H PRN PRN Reason: Pain (severe 7-10) Last Admin: 01/12/19 15:25 Dose: 2 mg Ondansetron HCl (Zofran) 4 mg IVPUSH Q4H PRN PRN Reason: Nausea Last Admin: 01/12/19 15:33 Dose: 4 mg Sodium Chloride (Saline Flush) 10 ml FLUSH ASDIRECTED PRN PRN Reason: Keep Vein Open Last Admin: 01/12/19 10:08 Dose: 10 ml Sodium Chloride (Saline Flush) 2.5 ml FLUSH ASDIRECTED PRN PRN Reason: Keep Vein Open Last Admin: 01/12/19 10:08 Dose: 2.5 ml Discontinued Medications Sodium Chloride (Normal Saline) 1,000 mls @ 999 mls/hr IV STAT ONE Stop: 01/12/19 10:42 Last Admin: 01/12/19 10:07 Dose: 999 mls/hr Sodium Chloride (Normal Saline) 1,000 mls @ 999 mls/hr IV STAT ONE Stop: 01/12/19 12:46 Last Admin: 01/12/19 11:50 Dose: 999 mls/hr Piperacillin Sod/Tazobactam (Sod 3.375 gm/ Sodium Chloride) 50 mls @ 100 mls/ hr IV ONETIME ONE Stop: 01/12/19 12:46 Last Admin: 01/12/19 13:12 Dose: 100 mls/hr Sodium Chloride (Normal Saline) Confirm Administered Dose 50 mls @ as directed .ROUTE .STK-MED ONE Stop: 01/12/19 13:06 Last Admin: 01/12/19 13:50 Dose: Not Given Sodium Chloride (Normal Saline) 1,000 mls @ 999 mls/hr IV .Bolus ONE Stop: 01/12/19 14:35 Last Admin: 01/12/19 13:49 Dose: 999 mls/hr Sodium Chloride (Normal Saline) 1,000 mls @ 150 mls/hr IV ASDIRECTED NIKKIE Sodium Chloride (Normal Saline) 1,000 mls @ 150 mls/hr IV Q6H NIKKIE Last Admin: 01/13/19 10:33 Dose: Not Given Influenza Virus Vaccine (Pharmacy To Dose - Influenza Vaccine) 1 each IM ONETIME ONE Stop: 01/13/19 10:01 Influenza Virus Vaccine (Fluzone Quad Syringe) 60 mcg IM .ONCE ONE Stop: 01/12/19 17:16 Last Admin: 01/13/19 11:44 Dose: Not Given Influenza Virus Vaccine (Fluzone Quad Syringe) 60 mcg IM .ONCE ONE Stop: 01/13/19 11:31 Last Admin: 01/13/19 12:40 Dose: 60 mcg Ondansetron HCl (Zofran) 4 mg IVPUSH ONETIME ONE Stop: 01/12/19 10:48 Last Admin: 01/12/19 10:51 Dose: 4 mg Potassium Chloride (Klor-Con M20) 40 meq PO ONETIME ONE Stop: 01/13/19 10:10 Last Admin: 01/13/19 10:37 Dose: 40 meq
[2019-01-13 14:24] VITALS: BP 120/75; PULSE 70
[2019-01-13] MEDS: Pantoprazole 40 MG in Sodium Chloride 0.9% 10 ML IV SCH (17:04)
== END 2019-01-13 15:30 | disposition home or self-care (01) ==
LOC: MW.ED 09:19 → MW.MS 13:53 → OBSVTOIN 16:11 → INTOOBSV 16:11
PROVIDERS: ADMIT Student in an Organized Health Care Education/Training Program; ATTEND Student in an Organized Health Care Education/Training Program
DX: K57.32 Diverticulitis of large intestine without perforation or abscess without bleeding (principal); E86.0 Dehydration; N17.9 Acute kidney failure, unspecified; E80.6 Other disorders of bilirubin metabolism; F17.200 Nicotine dependence, unspecified, uncomplicated; L40.9 Psoriasis, unspecified; Z23 Encounter for immunization
CPT/HCPCS: 36415; 71046; 74176; 76705; 80053; 81001; 83605; 83735; 85025; 87040; 87804; 90471; 90686; 96361; 96365; 96375; 99285; A9270; C9113; J2270; J2405; J2543; J7040; J7050; 96366; 96376; 99284; G0008; G0378; J7030

== ENCOUNTER 2019-04-26 22:19 | Emergency (ER) | payer SELFPAY ==
[2019-04-26] MEDS ORDERED: Dexamethasone 10 MG/ML SDV IVPUSH ONE (23:17)
[2019-04-26] MEDS ORDERED: HYDROmorphone 1 MG/ML Syringe IVPUSH ONE (23:17)
[2019-04-26] MEDS ORDERED: diazePAM 5 MG/ML MDV IV ONE (23:18)
--- NOTE | 2019-04-26 23:27 | EDM.PDOC ---
ED HPI GENERAL MEDICAL PROBLEM - General Chief Complaint: Back Pain or Injury Stated Complaint: PAIN IN LOWER BACK Time Seen by Provider: 04/26/19 23:15 Source of Information: Reports: Patient History Limitations: Reports: No Limitations - History of Present Illness INITIAL COMMENTS - FREE TEXT/NARRATIVE: CC low back pain HPI: This is a 53-year-old male with a history of ankylosing spondylosis who is been having severe low back pain for the past 2 days without any eliciting event he denies any loss of bowel or bladder control any urinary retention or saddle anesthesia or foot drop. patient has been taking "do not back pills" PMHX/PSHX: Ankylosing spondylitis Social History: Negative for tobacco, negative for alcohol, negative for street drugs or marijuana Family history: Hypertension ROS: see chart PE: VS afebrile vital signs stable General: No apparent distress Head: Atraumatic normocephalic no lumps bumps or bruises Eyes: EOMI PERRLA Ears: TMs intact no hemotympanum no signs of infection no mastoid tenderness Nose: No epistaxis nares patent no septal wall hematoma Throat: No pharyngeal erythema or exudate no tonsillar enlargement Neck: Supple, no cervical lymphadenopathy Chest wall: No point tenderness Heart: Regular rate and rhythm without murmur gallop or rub Lungs: Clear to auscultation and percussion without rales rhonchi or wheeze Abdomen: Soft nontender nondistended without guarding rigidity or rebound Neck: No spinal point tenderness full range of motion in all 6 directions Back: No spinal paraspinal or CVA tenderness. Negative straight leg test. Extremities: full rom through out. no effusions skin: Warm dry intact no rashes neurologic: cranial nerves II through XII intact. No focal motor or sensory deficits noted normal DTRs in the lower extremities. MDM: Differential diagnosis: ED course: Diagnosis: Disposition: Lower Back Pain Score (Numeric/FACES): 8 - Related Data Allergies Allergy/AdvReac Type Severity Reaction Status Date / Time No Known Allergies Allergy Verified 04/26/19 22:54 Home Meds: Home Meds Cyclobenzaprine [Flexeril] 10 mg PO BID 5 Days #10 tab 04/27/19 [Rx] Ibuprofen 800 mg PO TID #20 tablet 04/27/19 [Rx] Lidocaine [Lidoderm] 1 each TP BID #20 adh..patch 04/27/19 [Rx] methylPREDNISolone [Medrol Dose Pack] 4 mg PO DAILY #1 dospk 04/27/19 [Rx] Past Medical History - Past Health History Medical/Surgical History: Denies Medical/Surgical History Cardiovascular History: Reports: None Respiratory History: Reports: None Gastrointestinal History: Reports: None Musculoskeletal History: Reports: None Dermatologic History: Reports: Psoriasis - Infectious Disease History Infectious Disease History: Reports: Chicken Pox Social & Family History - Family History Family Medical History: Noncontributory - Tobacco Use Smoking Status *Q: Current Every Day Smoker Years of Tobacco use: 25 Packs/Tins Daily: 0.5 - Caffeine Use Caffeine Use: Reports: None - Recreational Drug Use Recreational Drug Type: Reports: Other (see below) Other Recreational Drug Type: medical THC card Recreational Drug Use Frequency: Daily - Living Situation & Occupation Occupation: Employed ED ROS GENERAL - Review of Systems Review Of Systems: Comprehensive ROS is negative, except as noted in HPI. ED EXAM,LOWER BACK PAIN/INJURY - Physical Exam Exam: See Below Text/Narrative:: The my H&P Course - Vital Signs Last Recorded V/S: Last Vital Signs Temp 36.2 C 04/26/19 22:51 Pulse 122 H 04/26/19 22:51 Resp 20 04/26/19 22:51 BP 142/106 H 04/26/19 22:51 Pulse Ox 97 04/26/19 22:51 - Orders/Labs/Meds Labs: Laboratory Tests 04/26/19 04/26/19 04/27/19 Range/Units 23:20 23:30 00:25 WBC 13.87 H (4.0-11.0) K/uL RBC 5.11 (4.50-5.90) M/uL Hgb 16.3 (13.0-17.0) g/dL Hct 46.7 (38.0-50.0) % MCV 91.4 (80.0-98.0) fL MCH 31.9 (27.0-32.0) pg MCHC 34.9 (31.0-37.0) g/dL RDW Std Deviation 42.7 (28.0-62.0) fl RDW Coeff of Clif 13 (11.0-15.0) % Plt Count 249 (150-400) K/uL MPV 9.70 (7.40-12.00) fL Neut % (Auto) 72.7 (48.0-80.0) % Lymph % (Auto) 18.2 (16.0-40.0) % Sumter % (Auto) 8.9 (0.0-15.0) % Eos % (Auto) 0.1 (0.0-7.0) % Baso % (Auto) 0.1 (0.0-1.5) % Neut # (Auto) 10.1 H (1.4-5.7) K/uL Lymph # (Auto) 2.5 H (0.6-2.4) K/uL Sumter # (Auto) 1.2 H (0.0-0.8) K/uL Eos # (Auto) 0.0 (0.0-0.7) K/uL Baso # (Auto) 0.0 (0.0-0.1) K/uL Nucleated RBC % 0.0 /100WBC Nucleated RBCs # 0 K/uL Sodium 141 (136-148) mmol/L Potassium 3.8 (3.5-5.1) mmol/L Chloride 104 (98-107) mmol/L Carbon Dioxide 21.0 (21.0-32.0) mmol/L BUN 14 (7.0-18.0) mg/dL Creatinine 1.0 (0.8-1.3) mg/dL Est Cr Clr Drug Dosing 3.40 mL/min Estimated GFR (MDRD) > 60.0 ml/min Glucose 101 (74-106) mg/dL Calcium 9.5 (8.5-10.1) mg/dL Urine Color DARK YELLOW Urine Appearance CLEAR Urine pH 6.0 (5.0-8.0) Ur Specific Grove >= 1.030 (1.001-1.035) Urine Protein NEGATIVE (NEGATIVE) mg/dL Urine Glucose (UA) NEGATIVE (NEGATIVE) mg/dL Urine Ketones 40 H (NEGATIVE) mg/dL Urine Occult Blood NEGATIVE (NEGATIVE) Urine Nitrite NEGATIVE (NEGATIVE) Urine Bilirubin SMALL H (NEGATIVE) Urine Ictotest NEGATIVE Urine Urobilinogen 0.2 (<2.0) EU/dL Ur Leukocyte Esterase NEGATIVE (NEGATIVE) Urine Opiates Screen (NEGATIVE) Ur Oxycodone Screen (NEGATIVE) Urine Methadone Screen (NEGATIVE) Ur Barbiturates Screen (NEGATIVE) Ur Phencyclidine Scrn (NEGATIVE) Ur Amphetamine Screen (NEGATIVE) U Methamphetamines Scrn (NEGATIVE) U Benzodiazepines Scrn (NEGATIVE) U Cocaine Metab Screen (NEGATIVE) U Marijuana (THC) Screen (NEGATIVE) 04/27/19 Range/Units 00:25 WBC (4.0-11.0) K/uL RBC (4.50-5.90) M/uL Hgb (13.0-17.0) g/dL Hct (38.0-50.0) % MCV (80.0-98.0) fL MCH (27.0-32.0) pg MCHC (31.0-37.0) g/dL RDW Std Deviation (28.0-62.0) fl RDW Coeff of Clif (11.0-15.0) % Plt Count (150-400) K/uL MPV (7.40-12.00) fL Neut % (Auto) (48.0-80.0) % Lymph % (Auto) (16.0-40.0) % Sumter % (Auto) (0.0-15.0) % Eos % (Auto) (0.0-7.0) % Baso % (Auto) (0.0-1.5) % Neut # (Auto) (1.4-5.7) K/uL Lymph # (Auto) (0.6-2.4) K/uL Sumter # (Auto) (0.0-0.8) K/uL Eos # (Auto) (0.0-0.7) K/uL Baso # (Auto) (0.0-0.1) K/uL Nucleated RBC % /100WBC Nucleated RBCs # K/uL Sodium (136-148) mmol/L Potassium (3.5-5.1) mmol/L Chloride (98-107) mmol/L Carbon Dioxide (21.0-32.0) mmol/L BUN (7.0-18.0) mg/dL Creatinine (0.8-1.3) mg/dL Est Cr Clr Drug Dosing mL/min Estimated GFR (MDRD) ml/min Glucose (74-106) mg/dL Calcium (8.5-10.1) mg/dL Urine Color Urine Appearance Urine pH (5.0-8.0) Ur Specific Grove (1.001-1.035) Urine Protein (NEGATIVE) mg/dL Urine Glucose (UA) (NEGATIVE) mg/dL Urine Ketones (NEGATIVE) mg/dL Urine Occult Blood (NEGATIVE) Urine Nitrite (NEGATIVE) Urine Bilirubin (NEGATIVE) Urine Ictotest Urine Urobilinogen (<2.0) EU/dL Ur Leukocyte Esterase (NEGATIVE) Urine Opiates Screen NEGATIVE (NEGATIVE) Ur Oxycodone Screen NEGATIVE (NEGATIVE) Urine Methadone Screen NEGATIVE (NEGATIVE) Ur Barbiturates Screen NEGATIVE (NEGATIVE) Ur Phencyclidine Scrn NEGATIVE (NEGATIVE) Ur Amphetamine Screen NEGATIVE (NEGATIVE) U Methamphetamines Scrn NEGATIVE (NEGATIVE) U Benzodiazepines Scrn NEGATIVE (NEGATIVE) U Cocaine Metab Screen NEGATIVE (NEGATIVE) U Marijuana (THC) Screen POSITIVE (NEGATIVE) Meds: Medications Discontinued Medications Generic Name Dose Route Start Last Admin Trade Name Freq PRN Reason Stop Dose Admin Dexamethasone 6 mg 04/26/19 23:17 04/26/19 23:30 Dexamethasone IVPUSH 04/26/19 23:18 6 mg ONETIME ONE Administration Diazepam 5 mg 04/26/19 23:18 04/26/19 23:31 Valium IV 04/26/19 23:19 5 mg ONETIME ONE Administration Hydromorphone HCl 1 mg 04/26/19 23:17 04/26/19 23:30 Dilaudid IVPUSH 04/26/19 23:18 1 mg ONETIME ONE Administration Departure - Departure Time of Disposition: 01:00 Disposition: Home, Self-Care 01 Clinical Impression: Lower back pain Qualifiers: Chronicity: acute Back pain laterality: unspecified Sciatica presence: without sciatica Qualified Code(s): M54.5 - Low back pain - Discharge Information Prescriptions: Cyclobenzaprine [Flexeril] 10 mg PO BID 5 Days #10 tab Ibuprofen 800 mg PO TID #20 tablet Lidocaine [Lidoderm] 1 each TP BID #20 adh..patch methylPREDNISolone [Medrol Dose Pack] 4 mg PO DAILY #1 dospk Instructions: Chronic Back Pain Referrals: Hiren Soares MD [Primary Care Provider] - Forms: ED Department Discharge Additional Instructions: The following information is given to patients seen in the emergency department who are being discharged to home. This information is to outline your options for follow-up care. We provide all patients seen in our emergency department with a follow-up referral. The need for follow-up, as well as the timing and circumstances, are variable depending upon the specifics of your emergency department visit. If you don't have a primary care physician on staff, we will provide you with a referral. We always advise you to contact your personal physician following an emergency department visit to inform them of the circumstance of the visit and for follow-up with them and/or the need for any referrals to a consulting specialist. The emergency department will also refer you to a specialist when appropriate. This referral assures that you have the opportunity for follow-up care with a specialist. All of these measure are taken in an effort to provide you with optimal care, which includes your follow-up. Under all circumstances we always encourage you to contact your private physician who remains a resource for coordinating your care. When calling for follow-up care, please make the office aware that this follow-up is from your recent emergency room visit. If for any reason you are refused follow-up, please contact the [facility] Emergency Department at and asked to speak to the emergency department charge nurse. Apply warm compresses to the lower back. Do not drink alcohol within 12 hours of taking the Flexeril. Follow-up with your primary care doctor soon as possible. Avoid heavy lifting. Care Plan Goals: The following information is given to patients seen in the emergency department who are being discharged to home. This information is to outline your options for follow-up care. We provide all patients seen in our emergency department with a follow-up referral. The need for follow-up, as well as the timing and circumstances, are variable depending upon the specifics of your emergency department visit. If you don't have a primary care physician on staff, we will provide you with a referral. We always advise you to contact your personal physician following an emergency department visit to inform them of the circumstance of the visit and for follow-up with them and/or the need for any referrals to a consulting specialist. The emergency department will also refer you to a specialist when appropriate. This referral assures that you have the opportunity for follow-up care with a specialist. All of these measure are taken in an effort to provide you with optimal care, which includes your follow-up. Under all circumstances we always encourage you to contact your private physician who remains a resource for coordinating your care. When calling for follow-up care, please make the office aware that this follow-up is from your recent emergency room visit. If for any reason you are refused follow-up, please contact the [facility] Emergency Department at and asked to speak to the emergency department charge nurse. [facility] [address], [place] [address] [facility] [address] [place] [id number] Sepsis Event Note - Evaluation Sepsis Screening Result: No Definite Risk - Focused Exam Vital Signs: Vital Signs Temp Pulse Resp BP Pulse Ox 04/26/19 22:51 36.2 C 122 H 20 142/106 H 97 Date Exam was Performed: 04/27/19 Time Exam was Performed: 01:00
[2019-04-26 23:51] LABS: BLOOD UREA NITROGEN,BUN 14 mg/dL (7.0-18.0); CHLORIDE,CL 104 mmol/L (98-107); GLUCOSE RANDOM 101 mg/dL (74-106); POTASSIUM,K 3.8 mmol/L (3.5-5.1); SODIUM,NA 141 mmol/L (136-148)
--- NOTE | 2019-04-27 00:29 | CR ---
INDICATION: Low back pain TECHNIQUE: Lumbar spine radiograph 3 views COMPARISON: None FINDINGS: Bone: No acute fractures or aggressive bone lesions are identified. Multiple wedge-shaped appearance of the T11-L1 vertebral bodies present without fracture line seen. Findings are likely due to developmental wedge. Anterolisthesis of L4-5 is noted by 9 mm. Disc: Moderate degenerative disc narrowing is present at L4-5. Mild bilateral facet osteoarthritis is present at L4-5 and L5-S1. Soft tissue: Unremarkable. No radiopaque foreign bodies are seen. IMPRESSIONS: 1. No acute osseous injuries or abnormalities are noted. 2. Anterolisthesis of L4-5 is noted by 9 mm. Dictated by Byron Reeves MD @ 04/27/2019 12:26:36 AM Dictated by: Byron Reeves MD @ 04/27/2019 00:26:49 (Electronically Signed)
[2019-04-27 01:17] VITALS: BP 132/80; PULSE 78
== END 2019-04-27 01:13 | disposition home or self-care (01) ==
LOC: MW.ED 22:19
DX: M54.5 Low back pain (principal); M45.9 Ankylosing spondylitis of unspecified sites in spine; F17.210 Nicotine dependence, cigarettes, uncomplicated
CPT/HCPCS: 36415; 72100; 80048; 80305; 81003; 85025; 96374; 96375; 99283; J1100; J1170; J3360

== ENCOUNTER 2020-10-04 17:51 | Emergency (ER) | payer SELFPAY ==
[2020-10-04 17:56] VITALS: BP 154/116; PULSE 109
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
== END 2020-10-04 18:03 ==
LOC: MW.ED 17:51
DX: Z02.89 Encounter for other administrative examinations (principal)
CPT/HCPCS: 99283